=== PATIENT | female | born 1985 | race Caucasian/White ===

== ENCOUNTER 2017-03-01 12:48 | Inpatient (IN) | payer MEDICAID ==
--- NOTE | 2017-03-01 13:06 | EDPHY ---
H & P Stated Complaint: seizure folowing ingesting "constitution party drugs." Time Seen by Provider: 03/01/17 13:05 Source: Patient - Personal History LMP (Females 10-55): Unknown Current Tetanus/Diphtheria Vaccine: Unsure Current Tetanus Diphtheria and Acellular Pertussis (TDAP): Unsure - Medical/Surgical History Other PMH: unknown as pt curtrently unresponsive - Social History Smoking Status: Unknown if ever smoked Constitutional: Initial Vital Signs Temperature (C) 36.5 C 03/01/17 12:51 Heart Rate 89 03/01/17 12:51 Respiratory Rate 18 03/01/17 12:51 Blood Pressure 142/81 H 03/01/17 12:51 O2 Sat (%) 96 03/01/17 12:51 Allergies/Adverse Reactions: Unable to Assess Allergy (Unverified 03/01/17 12:55) Home Medications: Medication Instructions Recorded Unobtainable 03/01/17 Medical Decision Making - Diagnostics Imaging Results: Imaging Impressions Head CT 03/01/17 13:19 Impression: Normal brain. No intracranial hemorrhage or mass effect. Findings discussed with emergency department physician, Luis Alberto Berman MD on March 01, 2017 at 2:15 p.m. Imaging: Discussed imaging studies w/ budget manager Radiologist ED Course/Re-evaluation: CHIEF COMPLAINT: Altered mental status HISTORY OF PRESENT ILLNESS: The patient is a 31-year-old female presenting altered mental status. The patient was at a dance/rave last night and took Lane , drank alcohol, and used marijuana. Around 2am started vomiting and seemed " out of it" per her friends. At 6am the patient began to convulse with tonic clonic movement for about 1.5 minutes. She was drinking a significant amount of water throughout the night. Her friends additionally state the patient took Dramamine and Benadryl before bed. She has remained altered. She moves throughout the bed, but does not respond to questions. History is limited as the patient is altered and does not respond to questions. REVIEW OF SYSTEMS: Unable to obtain because patient is altered. PHYSICAL EXAM: HR, BP, O2 Sat, RR. Temp noted General Appearance: Alert, does not respond to questions, appears altered. Head: Atraumatic without scalp tenderness or obvious injury Eyes: Pupils are dilated, round, reactive to light and accommodation, EOMI, no trauma, no injection. Ears: Clear bilaterally, no perforation, normal landmarks Nose: Atraumatic, no rhinorrhea, clear. Throat: There is no erythema or exudates, no lesions, normal tonsils, mucus membranes moist. Neck: Supple, 2+ carotid upstroke, nontender, no lymphadenopathy. Respiratory: No retractions, no distress, no wheezes, and no accessory muscle use. Lungs are clear to auscultation bilaterally. Cardiovascular: Regular rate and rhythm, no murmurs, rubs, or gallops. Bilateral carotid, radial, dorsalis pedis, and posterior tibial pulses intact. Good capillary refill all extremities. Gastrointestinal: Abdomen is soft, non-distended, no masses, no rebound, no guarding, no peritoneal signs. Musculoskeletal: Normal active ROM of all extremities, atraumatic. Neurological: Alert, appropriate, and interactive. The patient has normal DTRs and non-focal cranial nerves, motor, sensory, and cerebellar exam. Skin: No rashes, good turgor, no nodules on palpation. Past medical history: Denies. Past surgical history: Denies Family history: Noncontributory Social history: Alcohol use. Marijuana use. Lane use. Here with friends. DIAGNOSTICS/PROCEDURES/CRITICAL CARE TIME: Head CT reported to me by the radiologist is normal. Please see imaging section for full report. DIFFERENTIAL DIAGNOSIS: The differential diagnosis for the patient's altered mental status included but was not limited to hypoglycemia, infectious process, electrolyte abnormality, head injury, neurologic process, anemia, cardiac process, and intoxicants. MEDICAL DECISION MAKING: The patient presents with altered mental status and seizure from polysubstance use last night. The patient took lane, drank alcohol , and used marijuana last night. Around 6am she had a seizure confirmed by her friends who report she had tonic clinic movement and bit her tongue. The patient took two anticholinergics before bed. Her pupils are dilated and she does not responds to questions. Plan for extensive lab work. We will look for dehydration and electrolyte issue. CT head ordered. The patient's sodium is low at 123, her chloride is low at 8.6, and potassium is elevated at 5.5. The patient's serum osmolality is low at 263. We will restrict her fluids. Her urinalysis is still pending. Her glucose is normal and kidney function appear normal. The patient has metabolic gap acidosis that is likely from seizure caused by depleted sodium. Her CT head is normal. Plan to admit the patient for further observation. Her fluids have been restricted. Urinalysis is pending. 2:15 p.m.: I spoke to the hospitalist, the patient will be admitted to Dr. Waters. - Data Points Laboratory Results: Laboratory Results 03/01/17 12:48 03/01/17 12:48 03/01/17 03/01/17 03/01/17 12:48 12:48 12:48 WBC TNP RBC TNP Hgb TNP Hct TNP MCV TNP MCH TNP MCHC TNP RDW TNP Plt Count TNP MPV TNP Neut % (Auto) TNP Lymph % (Auto) TNP [place] % (Auto) TNP Eos % (Auto) TNP Baso % (Auto) TNP Nucleat RBC Rel Count TNP Absolute Neuts (auto) TNP Absolute Lymphs (auto) TNP Absolute Monos (auto) TNP Absolute Eos (auto) TNP Absolute Basos (auto) TNP Absolute Nucleated RBC TNP Immature Gran % TNP Immature Gran # TNP Sodium 123 mEq/L L mEq/L (135-145) Potassium 5.5 mEq/L H mEq/L (3.5-5.2) Chloride 86 mEq/L L mEq/L (97-110) Carbon Dioxide 12 mEq/l L mEq/l (22-31) Anion Gap 25 mEq/L H mEq/L (8-16) BUN 4 mg/dL L mg/dL (7-23) Creatinine 0.6 mg/dL mg/dL (0.6-1.0) Estimated GFR > 60 Glucose 104 mg/dL H mg/dL (70-100) Serum Osmolality 263 mosmo/kg L mosmo/kg (280-297) Calcium 9.6 mg/dL mg/dL (8.5-10.4) Total Bilirubin 1.5 mg/dL H mg/dL (0.1-1.4) Conjugated Bilirubin 0.4 mg/dL mg/dL (0.0-0.5) Unconjugated Bilirubin 1.1 mg/dL mg/dL (0.0-1.1) AST 46 IU/L IU/L (14-46) ALT 37 IU/L IU/L (9-52) Alkaline Phosphatase 86 IU/L IU/L (38-126) Total Protein 7.5 g/dL g/dL (6.3-8.2) Albumin 4.5 g/dL g/dL (3.5-5.0) Lipase 90 IU/L IU/L (23-300) Beta HCG, Qual NEGATIVE Departure - Departure Disposition: [facility] [place] Inpatient Acute Clinical Impression: Seizure, Polydipsia, Polysubstance abuse Condition: Fair Report Scribed for: Luis Alberto Berman Report Scribed by: Geraldine Cruz Date of Report: 03/01/17 Time of Report: 14:22
[2017-03-01] MEDS ORDERED: ALTEPLASE 2 MG VIAL IVP PRN (14:24)
[2017-03-01 14:39] LABS: PLATELET COUNT 392 10^3/uL (150-400)
[2017-03-01] MEDS ORDERED: ONDANSETRON DISINTEGRATING 4 MG TAB PO PRN (14:58)
[2017-03-01] MEDS ORDERED: ONDANSETRON 4 MG/2 ML VIAL IVP PRN (14:58)
[2017-03-01] MEDS ORDERED: ACETAMINOPHEN 325 MG TAB PO PRN (14:58)
[2017-03-01] MEDS ORDERED: SODIUM Cl 3% 100 ML IV SCH (15:15)
--- NOTE | 2017-03-01 16:02 | GHP ---
[f rep st] HISTORY AND PHYSICAL DATE OF ADMISSION: 03/01/2017 HISTORY OF PRESENT ILLNESS: The patient is a pleasant 31-year-old female with past medical history o f bipolar, who went out to see a concert last night, she took some ecstasy, and drank a fair amount o f alcohol. Her friends note that she drank a great deal of water. She also smoked some marijuana, a nd took some Benadryl and Dramamine prior to sleep. She was known to move from the couch to the bed at about 5 or 6 this morning, and at about 1 o'clock, while still sleeping it off, the patient was ob served to have a generalized tonic-clonic seizure. Her friends were with her, and stated there was n o head injury or fall. She did not take anything else of which they are aware. She has no previous seizure history. Her home medications are unknown. She did not eat much last night, has not eaten this morning, and she has been groggy since. REVIEW OF SYSTEMS: A complete 10-point review of systems conducted and negative except as noted in the HPI. PAST MEDICAL HISTORY: Bipolar. ALLERGIES: Unable to be assessed, but believe to be none. HOME MEDICATIONS: A bipolar medicine, no further information. SOCIAL HISTORY: No tobacco, substances as in the HPI. FAMILY HISTORY: Reviewed and unremarkable. PHYSICAL EXAMINATION: VITAL SIGNS: Temp 36.5, blood pressure 142/81, pulse 89, breathing 18 times a minute, 96% on room air. GENERAL: No acute distress. She is actively resisting the exam, she is a bit glassy eyed and not conversant. EYES: Sclerae are anicteric. Pupils are equal, round, reactiv e to light and accommodation. NECK: Supple without lymphadenopathy. LUNGS: Clear to auscultation bilaterally. HEART: As best I can tell, but she is noncompliant with the exam. Her heart is S1, S2 . Not tachycardic. ABDOMEN: Soft, nontender, nondistended. LOWER EXTREMITIES: Without edema. NE UROLOGIC: Notable for encephalopathy. The patient is unable to commit to complete neurologic exam. LABS: Her white count 14.8, hematocrit is 37, with a low MCV, platelets are 392,000. Sodium 123, potassium 5.5, chloride 86, bicarb 12, BUN 4, creatinine 0.6, glucose 104, serum __ are 263, bilirubin is a little bit high 1.5. LFTs, and lipase, and beta HCG are negative. Repeat sodium about 90 minutes later, is the sodium 120, potassium 4.7, chloride 90, bicarb 18, BUN 4, crea tinine 0.5, glucose 102. Noncontrast head CT is normal, without evidence of trauma. I have discussed the case with Dr. Luis Alberto Berman, as well as Dr. Luis Antonio Berry of Nephrology. ASSESSMENT/PLAN: A 31-year-old female with seizure secondary to acute hyponatremia. 1. Hyponatremia. I suspect that the patient has water intoxication, as well as probably abnormal wa ter handling from the polyuria that can come with ecstasy use, as well as poor water handling. I blanquita l fluid restrict her. Given that her sodium has fallen with no intervention, and she did receive zer o IV fluids in the emergency department. I will give her a bolus of 100 cc over 2 hours of 3% saline and have a Nephrology consult. We will follow her sodium q.3 hours via a PICC line and place her in the ICU. 2. Seizure. This is secondary to hyponatremia. We will hold off on antiepileptic drugs, unless the re is a second seizure. 3. Metabolic acidosis with anion gap. This is secondary to seizures and is correcting. We will fol low her chem-7. 4. Microcytic anemia. This is likely iron deficiency. 5. Encephalopathy. This is multifactorial as described above. We will follow, it is concerning. 6. Vomiting. She did have an episode of vomiting. We will check a chest x-ray, given the likelihoo d or possibility of aspiration. DISPOSITION: ICU. Sixty minutes of critical care spent on the care of this patient. /[id number]/MODL
--- NOTE | 2017-03-01 16:39 | PDMN ---
Medical Necessity Medical necessity: C/M review: est. > 2 MN LOS fro eval and TX of acute and persistent - hyponatremia, metabolic acidosis with anion gap, microcytic anemia , encephalopathy; episode of vomiting requiring PICC line placement, planned nephrology consult, ongoing NPO, IV fluid, close monitoring in ICU, comorbid witnessed generalized tonic-clonic seizure prior to this admission, bipolar disorder, patient took ecstasy, alcohol, marijuana, Benadryl and Dramamine last night prior to this admission per H/P.
[2017-03-01] MEDS ORDERED: SODIUM Cl 3% 100 ML IV ONE (17:00)
--- NOTE | 2017-03-01 18:42 | GCON ---
[f rep st] CONSULTATION REFERRING PHYSICIAN: Josias Waters MD REASON FOR CONSULTATION: Hyponatremia. HISTORY OF PRESENT ILLNESS: The patient is a 31-year-old female, who was brought in to the emergency department today after she experienced a seizure. She was at a dance green party/rave last night, where s he reportedly used ecstasy, alcohol, marijuana, and also took some Benadryl and Dramamine. She was d rinking water throughout the night. She was more unresponsive this morning prior to having generaliz ed convulsive movements. In the emergency department, she was found to have a low blood sodium of 12 3. No IV fluids were given, per chart review, but her sodium on subsequent check was 120. Her neuro status remained altered. She did not verbalize but would open her eyes without following other comm ands. Urine testing has not been obtained yet. We are asked to assist in management. She received a PICC line and has been transferred to the ICU. At this time, she continues to not respond upon que stioning. PAST MEDICAL HISTORY: Bipolar disorder. ALLERGIES: No known allergies. Unable to assess. SOCIAL HISTORY: See HPI. She is not reportedly a smoker. FAMILY HISTORY: Unable to obtain. CURRENT MEDICATIONS: Zofran p.r.n. Home medications unknown. REVIEW OF SYSTEMS: Cannot obtain. Patient not responsive. PHYSICAL EXAMINATION: VITAL SIGNS: 118/79, pulse 90, respirations 18. 94% on room air. 36.9 Celsi us. GENERAL: Withdrawn young female, curled up in the position, who does not respon d to commands. When roused and repositioned with nursing staff, she does open her eyes but quickly c loses them and rolls back over. She is not tremulous or diaphoretic. EYES: Sclerae appear without injection. HEAD: Atraumatic. NECK: Unable to get a good neck exam. HEART: Regular rate and rhyt hm without murmurs, gallops, or rubs. LUNGS: Clear to auscultation bilaterally. ABDOMEN: Suboptim al exam but soft and nontender. LOWER EXTREMITIES: Without any pitting edema. NEUROLOGICAL: She i s lethargic and does not vocalize. No clearly gross focal deficits. SKIN: Without rashes. MUSCULO SKELETAL: No gross joint swelling or deformities. LABS: Sodium is 120, potassium 4.7, CO2 18, BUN 4, creatinine 0.5. TSH 1.26. White count 14.8, hem oglobin 13, platelets 392. Chest x-ray, which I personally reviewed, was unremarkable for infiltrates or pulmonary edema. Head CT: Negative for hemorrhage or mass effect. IMPRESSION AND PLAN: 1. Hyponatremia. This is presumed acute, most likely due to ecstasy use and excess serotonergic sti mulation in the setting of ongoing water intake overnight. I do not have urine studies to confirm he r physiology, but we will treat as syndrome of inappropriate antidiuretic hormone secretion. She luong s have acute mental status changes and had a seizure. I believe this is due to acute lowering of her sodium and probably some mild cerebral edema. Therefore, it is prudent to give a bolus of hypertoni c saline and try to raise her sodium level by 2-3 points. We will fluid restrict her and follow seri al sodiums every 2 hours. If needed, we can give additional hypertonic saline at a slow rate, such a s 15-20 cc/hr. I anticipate that this will easily correct on its own with fluid restriction. 2. Altered mental status. She ingested multiple neuroactive substances affecting multiple pathways. Fortunately, she has stable vital signs and will hopefully recover without additional interventions . 3. Acidosis. Her anion gap was 25 earlier today. Presumably lactic acidosis from her seizure. Thi s has resolved, with a current anion gap of 12. If she had another toxic solvent ingestion, I would not have expected her anion gap to suddenly clear like this. I will check a serum osmolality just to be safe. We will follow this. I will not give sodium bicarbonate at this time. 4. Hyperkalemia. Her potassium was initially 5.5. This was likely due to transient acidosis and ex tracellular shifting. This has now corrected to 4.7. I did spend from 1650 to 1722 in critical care time with this patient. ADDENDUM: Her sister and sister's came in after my exam. She lives with them. They state s he was at her normal baseline health, which is not well mentally but reportedly on bipolar medication . They are not sure what she currently takes. She had a prior suicide attempt 8 years ago but nothi ng like that since. She has not been hospitalized for drug overdoses otherwise, to their knowledge. She was on lithium in the past but not recently. I would add that her bipolar medication, depending on what she takes, may be contributing to some chronic hyponatremia. Unfortunately, we do not have a baseline. Therefore, we will target a sodium level of around 126 by tomorrow morning. I would lik e to place a Vargas to better assess her physiology. I still think it is most likely that this is all acute. /[id number]/MODL
[2017-03-02] MEDS ORDERED: DESMOPRESSIN ACETATE 4 MCG/ML INJ SC ONE (02:30)
[2017-03-02] MEDS ORDERED: D5W 1,000 ML IV SCH (02:30)
--- NOTE | 2017-03-02 11:55 | SOAPPROG ---
SOAP Progress Note Assessment/Plan: Assessment/Plan: Hyponatremia: likely an acute drop in setting of ecstasy use. Pt initially requiring 3% sodium chloride and sodium up from 123 -> 120 -> 130, so overnight given ddavp as well as started on D5W. Sodium now 127. - Will stop D5W. - Will allow pt to drink po fluids, no restriction for now. - Goal sodium is 133-135 tomorrow morning. - Will continue to monitor sodium q3h for now and adjust water and sodium as needed. Hyperkalemia: resolved, K down from 5.5 to 4.0, will continue to monitor. Subjective: No acute events overnight. Pt is now awake, states that she feels bad about what she did. She denies any pain, dyspnea or confusion today. Objective: Vital Signs Temp Pulse Resp BP Pulse Ox 36.9 C 82 14 101/64 97 03/02/17 09:53 03/02/17 09:53 03/02/17 09:53 03/02/17 09:53 03/02/17 09:53 Laboratory Results 03/01/17 14:32 03/02/17 10:50 03/01/17 03/02/17 03/03/17 05:59 05:59 05:59 Intake Total 800 Output Total 3000 Balance -2200 General: alert and oriented, no acute distress Eyes: EOMI, PERRL OP: Clear CV: RRR Resp: nonlabored respirations on RA Abd: Soft, NT/ND Ext: no edema BLE Neuro: CN II-XII grossly intact, no asterixis PsycH: cooperative, appropriate mood and affect ICD10 Worksheet Patient Problems: Problems Problem Status Onset Polydipsia Acute Polysubstance abuse Acute Seizure Acute
--- NOTE | 2017-03-02 13:02 | GCON ---
[f rep st] CONSULTATION MANAGER SOCIAL MEDIA CONSULTATION. DATE OF CONSULTATION: 03/02/2017 REASON FOR ADMISSION: Hyponatremia and ingestion of ecstasy. HISTORY OF PRESENT ILLNESS: The patient is an extremely pleasant 31-year-old white female with a pas t medical history including bipolar disorder. She was out partying and drank excessive amounts of al cohol. This occurred at a concert and then she took some ecstasy. Subsequently she began drinking e xcessive amounts of water. She apparently smoked some marijuana and took Benadryl on Dramamine prior to falling asleep. In the morning she was observed to have a generalized seizure and she was jagdeep t to the emergency room. Currently, patient is awake and alert and regretful of her indigestions. S he does not complain of any pain. There is no cough or production of sputum. There is no fever or n ight sweats. REVIEW OF SYSTEMS: A complete 10-point Review of Systems was performed and negative except which is noted in HPI. PAST MEDICAL HISTORY: Significant bipolar disease. ALLERGIES: No known allergies to medications. SOCIAL HISTORY: No history of tobacco use. She states infrequent alcohol use. Work history: She w orks in [place]. She is single, without children. She has lived in [facility] 3[place]years away from [place]. FAMILY HISTORY: Noncontributory. PHYSICAL EXAM: VITAL SIGNS: Blood pressure 112/79, pulse is 89, respirations 14, temperature 38.5, oxygen saturation 98% on room air. GENERAL: She is a well-developed, well-nourished, 31-year-old fe male, who is resting comfortably in no acute distress. HEENT: Eyes are PERRLA, EOMI. Throat shows no erythema or tonsillar hypertrophy. NECK: Supple. No cervical adenopathy. HEART: Regular rate and rhythm without murmurs, rubs, or gallops. LUNGS: Diminished breath sounds, but no wheeze. ABDO MEN: Soft, nontender. Bowel sounds are present in all 4-quadrants. EXTREMITIES: No clubbing, cyan osis, or edema. NEURO EXAM: Cranial nerves 2 through 12 are grossly intact. She is alert and orien lj x3. LABORATORIES: Sodium is 127, potassium 4.0, chloride 96. CO2 is 23, BUN 6, creatinine 0.6, glucose is 88. Urinalysis: pH 7, specific gravity described 1.014, 1+ bacteria. IMPRESSION: 1. Polysubstance abuse including ecstasy, marijuana and alcohol. 2. Hyponatremia. 3. Seizure secondary to hyponatremia. 4. Metabolic acidosis. 5. Encephalopathy, resolved. 6. Vomiting, resolved. RECOMMENDATIONS: 1. Agree with Nephrology consult. 2. Close monitoring of sodium. 3. DVT and PE prophylaxis. 4. Stress ulcer prophylaxis. Thank you very much. /[id number]/MODL
[2017-03-02] MEDS ORDERED: POLYETHYLENE GLYCOL 3350 17 GM PKT PO PRN (15:19)
[2017-03-02] MEDS ORDERED: BISACODYL 10 MG SUPP PR PRN (15:19)
[2017-03-02] MEDS ORDERED: LACTULOSE 20 GM/30 ML UDCUP PO PRN (15:19)
[2017-03-02] MEDS ORDERED: MAGNESIUM HYDROXIDE 30 ML UDCUP PO PRN (15:19)
--- NOTE | 2017-03-02 15:20 | HOSPPROG ---
Hospitalist Progress Note Assessment/Plan: Assessment: 31-year-old female presents with acute seizure and encephalopathy in the setting of acute hyponatremia Plan: 1. Acute encephalopathy. Evidenced by global brain dysfunction characterized as inability to cooperate with exam, somnolence, all of which are acute change from her baseline, most likely secondary to the acute metabolic effects of hyponatremia, toxic effects of polysubstance ingestion, as well as postictal state -currently mentating at baseline, remains lethargic 2. Acute seizure. Most likely secondary to acute hyponatremia, no indication for further epileptic medications 3. Hyponatremia. Acute, severe, most likely resulting in seizure and encephalopathy, most likely caused by primary polydipsia in the setting of ecstasy ingestion -status post hypertonic saline, then received DDAVP after the patient's sodium level corrected too quickly, received D5 W overnight -discussed with Dr. Kingston, she recommends ongoing Q 3 hr sodium level monitoring , mild fluid restriction, discontinue D5 -counseled the patient regarding her medical condition, as well as its connection to ecstasy ingestion, encourage the patient that there likely will be long-term impairment due to this issue, but the reason we are focusing so closely on sodium level correction is to prevent those 4. Metabolic acidosis. Acute, most likely secondary to lactic acid in the setting of seizure, resolved 5. Polysubstance ingestion. Discussed with patient in detail, patient is currently experiencing stages of regret and guilt -encouraged patient to interact with our case management social worker for further counseling and guidance 6. Mood disorder. Patient is currently taking Cymbalta for her underlying mood disorder, this as reportedly led to some instability in the patient's life and the patient currently has a narrow support network with her sister being her only local family -will continue the Cymbalta tomorrow, suspect that the acute hyponatremia is most likely not due to the Cymbalta and if recommended by Nephrology, she can remain off of Cymbalta for a set amount of time prior to initiating if needed . Regular comma mild fluid restriction Prophylaxis. Low risk patient, SCDs Code. Full Disposition. Anticipated discharge is 03/03, pending stabilization of condition outlined above. Subjective: Patient is voicing regret, disappointment, guilt regarding her presentation, she is afraid of long-term consequences Objective: Vital Signs Temp Pulse Resp BP Pulse Ox 38.5 C H 76 15 112/79 96 01/15/18 12:00 03/02/17 14:00 03/02/17 14:00 03/02/17 14:00 03/02/17 14:00 Laboratory Results 03/01/17 14:32 03/02/17 13:30 03/01/17 03/02/17 03/03/17 05:59 05:59 05:59 Intake Total 800 Output Total 3000 Balance -2200 - Time Spent With Patient Time Spent with Patient: greater than 35 minutes Time Spent with Patient: Greater than 35 minutes spent on this patients care, greater than 50% of time spent counseling, educating, and coordinating care regarding the above mentioned plan. - Physical Exam Constitutional: appears nourished, not in pain, No chronically ill appearing, No uncomfortable Ears, Nose, Mouth, Throat: moist mucous membranes Cardiovascular: regular rate and rhythym, no murmur, rub, or gallop Respiratory: no respiratory distress, no rales or rhonchi, clear to auscultation Gastrointestinal: normoactive bowel sounds, soft, non-tender abdomen, no palpable masses Neurologic: AAOx3, sensation intact bilaterally, other (No tremulousness), No weakness, No asterixes Psychiatric: not encephalopathic, thought process linear, anxious, depressed, No agitated ICD10 Worksheet Patient Problems: Problems Problem Status Onset Polydipsia Acute Polysubstance abuse Acute Seizure Acute
[2017-03-02 17:25] LABS: PLATELET COUNT 266 10^3/uL (150-400)
--- NOTE | 2017-03-02 17:29 | ASMTCMCOM ---
CM Note CM Note Notes: 31 year old female admitted for SZ, hyponatremia and polysubstance use. She has a hx of Bipolar. Spoke with the patient who was tearful. "I never do this kind of stuff and here I am in the hospital!" Patient reports that she and her sister live together in [facility]. They came to [place] to participate in a Rave and she took substances. Her sister is older and very concerned. No parents. Patient regretful and states that she has learned a lesson. Date Signed: 03/02/2017 05:28 PM Electronically Signed By:Azeb Gold LCSW
[2017-03-02] MEDS ORDERED: SODIUM Cl 3% 30 ML IV ONE (20:30)
[2017-03-02] MEDS: SENNOSIDES/DOCUSATE SODIUM TAB PO SCH (20:52)
[2017-03-02] MEDS ORDERED: SODIUM CHLORIDE 1,000 MG TAB PO ONE (22:00)
[2017-03-02] MEDS ORDERED: POTASSIUM CL 20 MEQ TAB PO ONE (22:00)
[2017-03-03] MEDS ORDERED: D5W 1,000 ML IV SCH ×2 (01:00→04:30)
[2017-03-03 03:40] LABS: PLATELET COUNT 280 10^3/uL (150-400)
[2017-03-03] MEDS ORDERED: DESMOPRESSIN ACETATE 4 MCG/ML INJ ONE (04:18)
[2017-03-03] MEDS ORDERED: DESMOPRESSIN ACETATE 4 MCG/ML INJ IVP ONE (04:30)
[2017-03-03] MEDS: SENNOSIDES/DOCUSATE SODIUM TAB PO SCH (08:51)
[2017-03-03] MEDS ORDERED: ARIPiprazole 5 MG TAB PO SCH (09:00)
--- NOTE | 2017-03-03 09:38 | PDINTPN ---
Microbiology Instructor Progress Note Assessment/Plan: Assessment: * Hyponatremia-markedly improved the rapidly. Received a dose of DDAVP this morning. -await more recent sodium -per Nephrology * Status post ectasy ingestion Plan: Possibly home today Subjective: Awake and alert. Comfortable. Denies any pain. No somnolence. Objective: Vital Signs Temp Pulse Resp BP Pulse Ox 36.8 C 80 11 L 114/77 100 03/02/17 19:46 03/03/17 08:00 03/03/17 08:00 03/03/17 08:00 03/03/17 08:00 Laboratory Results 03/03/17 03:05 03/02/17 03/03/17 03/04/17 05:59 05:59 05:59 Intake Total 800 686 Output Total 3000 2950 Balance -2200 -2264 Laboratory Results 03/03/17 03:05 03/03/17 09:00 03/03/17 03/03/17 03/02/17 06:25 03:05 23:59 Sodium 138 mEq/L mEq/L 138 mEq/L mEq/L 132 mEq/L L mEq/L (135 - 145) (135 - 145) (135 - 145) 03/02/17 21:05 Sodium 125 mEq/L L mEq/L (135 - 145) - Time Spent With Patient Time Spent With Patient: 35 min of time spent with patient, over 1/2 involved with coordination of care or counseling Physical Exam - Physical Exam General Appearance: alert, no apparent distress EENT: PERRL/EOMI, normal ENT inspection, pharynx normal, TMs normal Neck: non-tender, full range of motion, supple, normal inspection Respiratory: chest non-tender, lungs clear, normal breath sounds Cardiac/Chest: normal peripheral pulses, regular rate, rhythm Peripheral Pulses: 2+: carotid (R), carotid (L), femoral (R), femoral (L), dorsalis-pedis (R), dorsalis-pedis (L) Abdomen: normal bowel sounds, non-tender, soft Pelvic Exam: deferred Rectal: deferred Skin: normal color, warm/dry Extremities: normal range of motion, non-tender, normal inspection, normal capillary refill Neuro/Psych: no motor/sensory deficits, alert, normal mood/affect, oriented x 3 ICD10 Worksheet Patient Problems: Problems Problem Status Onset Polydipsia Acute Polysubstance abuse Acute Seizure Acute
--- NOTE | 2017-03-03 09:39 | SOAPPROG ---
SOAP Progress Note Assessment/Plan: Assessment/Plan: Hyponatremia: likely an acute drop in setting of ecstasy use. Pt initially requiring 3% sodium chloride and sodium responded, started on DDAVP and D5W to slow down her correction. Yesterday she slowly drifted down and got 3% again, and sodium came up to 138, got DDAVP again this morning. - Pt is on D5W and got DDAVP. - Will stop fluid restriction and allow her to drink. - Goal is to stop D5W and allow her to correct, stay in mid 130s today. - Will continue to monitor sodium q3h for now and adjust water and sodium as needed. Subjective: No acute events overnight. Sodium dropped down yesterday evening to 125 in setting of DDAVP given the night before and fluid restriction. Pt was given additional 3% and sodium increased to 138, got additional DDAVP early this morning. Pt denies any confusion. She had a slight headache yesterday but feels fine today. She had some mild nausea with eating yesterday but tolerating fluids fine. She feels thirsty. Objective: Vital Signs Temp Pulse Resp BP Pulse Ox 36.8 C 80 11 L 114/77 100 03/02/17 19:46 03/03/17 08:00 03/03/17 08:00 03/03/17 08:00 03/03/17 08:00 Laboratory Results 03/03/17 03:05 03/02/17 03/03/17 03/04/17 05:59 05:59 05:59 Intake Total 800 686 Output Total 3000 2950 Balance -2200 -2264 General: alert and oriented, no acute distress Eyes; EOMI, pERRL OP: Clear CV: RRR Resp: CTA bilat, nonlabored respirations Abd: Soft,, NT/ND Ext: no edema BLE Neuro: CN II-XII grossly intact, no asterixis Psych; cooperative, appropriate mood and affect ICD10 Worksheet Patient Problems: Problems Problem Status Onset Polydipsia Acute Polysubstance abuse Acute Seizure Acute
[2017-03-03 12:49] VITALS: TEMP 98
[2017-03-03 14:29] VITALS: BP 102/65; PULSE 76; RESP 15; O2SAT 98
--- NOTE | 2017-03-03 16:53 | PDDCSUM ---
Discharge Summary Discharge Summary: DISCHARGE SUMMARY FOLLOW-UP ITEMS: The creatinine BUN and lytes 1 week in the outpatient setting DATE OF ADMISSION: 03/01/2017 DATE OF DISCHARGE: 03/03/2017 DISCHARGE DIAGNOSES: 1. Acute encephalopathy 2. Acute seizure 3. Acute severe hyponatremia 4. Acute metabolic acidosis 5. Polysubstance ingestion 6. Chronic mood disorder CONSULTATIONS: Nephrology, Pulmonary Critical Care PROCEDURES / IMAGING: None CHIEF COMPLAINT: Acute seizure and unresponsiveness SUBJECTIVE: Patient is feeling well at time discharge, she is not experiencing any pain, she is interacting well PHYSICAL EXAM ON DISCHARGE: Systolic blood pressure is 110, heart rate 70, afebrile overnight, satting well on room air, urine output 3 L, alert awake oriented x3, not tremulous, moving all 4 extremities LABS ON DISCHARGE: Serum sodium is 131, creatinine 0.6, white blood count 5200, serum bicarb 21 HOSPITAL COURSE BY PROBLEM: The patient presented with acute encephalopathy evidenced by global brain dysfunction characterized as inability to cooperate with exam, somnolence, all of which were acute changes from baseline, most likely secondary to the acute metabolic effects of hyponatremia, metabolic acidosis, toxic effects of polysubstance ingestion as well as a postictal state. The patient had a witnessed seizure prior to presentation and this is most likely secondary to acute hyponatremia. Consequently, the focus of treatment was on the hyponatremia, the patient does not require any antiepileptic medications. Nephrology was consulted, the patient received hypertonic saline, her sodium corrected too rapidly, and she subsequently received DDAVP. Patient was also placed on D5W, and this was weaned off, with mild fluid restriction and q.3 hours sodium level monitoring. The patient also presented with metabolic acidosis as evidenced by serum bicarbonate level of 12, which resolved with IV fluids mentioned above. The patient did require re-dosing of DDAVP given her recurrent rapid correction of sodium level, and her serum sodium level has stabilized at 131 at time of discharge. The patient is experiencing no neurologic deficits, and she is committed to remaining drug free moving forward. The cause of her severe hyponatremia was ingestion of ecstasy with resultant polydipsia, on the evening prior to presentation. We counseled patient regarding the cause of her hyponatremia, supported her with social work counseling for her underlying mood disorder, and recommended that she have outpatient lab monitoring to ensure that her dosage of Abilify is not resulting in and out of chronic hyponatremia. We recommended continuing the Abilify, reaching her labs next week, and following up with her PCP. At the time discharge, she does not require fluid restrictions. DISCHARGE MEDICATIONS: Please see official discharge medication reconciliation sheet in chart , Abilify , no other medications. DISCHARGE INSTRUCTIONS: Please follow up with primary care provider, please avoid ingestion of ecstasy.
--- NOTE | 2017-03-03 17:26 | ASDISCHSUM ---
Discharge Information Plan Status:Home with No Needs Medically Cleared to Leave:03/02/2017 Discharge Date:03/03/2017 04:39 PM CM D/C Disposition:Home, Routine, Self-Care ADT D/C Disposition:Home, Routine, Self-Care Projected Discharge Date:03/03/2017 12:00 AM Transportation at D/C:Family Discharge Delay Reason: Follow-Up Date:03/03/2017 12:00 AM Discharge Slot: Final Diagnosis:SZ, polysubstance use, hyponatremia Placement Information Patient Contact Information Contact Name:YANCY Relationship:Sister Address: Work Phone: City: [facility] Phone: State/Nearbox Code: Email: Financial Information Financial Class: Primary Plan Desc:[employer] [facility] Primary Plan Number:[id number] Secondary Plan Desc: Secondary Plan Number: Assessment Information [facility] CM Progress Note CM Note CM Note Notes: 31 year old female admitted for SZ, hyponatremia and polysubstance use. She has a hx of Bipolar. Spoke with the patient who was tearful. "I never do this kind of stuff and here I am in the hospital!" Patient reports that she and her sister live together in [facility]. They came to [place] to participate in a Rave and she took substances. Her sister is older and very concerned. No parents. Patient regretful and states that she has learned a lesson. Date Signed: 03/02/2017 05:28 PM Electronically Signed By:Azeb Gold LCSW Case Management Discharge Plan Note Case Management Discharge Discharge Order Complete? Answers: Yes Patient to Obtain Answers: Independently Medications Transportation Arranged Answers: Family/Friends Transport will Pick (Date 03/03/2017 12:00 AM & Time) Family Notified Answers: Yes Notes: Sister to transport Discharge Comments Notes: Patient has been discharge home. No other needs at this time. Date Signed: 03/03/2017 04:20 PM Electronically Signed By:Azeb Gold LCSW Intervention Information
== END 2017-03-03 16:39 | disposition home or self-care (01) | DRG 640 ==
LOC: F2N 16:47
PROVIDERS: ADMIT Internal Medicine; ATTEND Internal Medicine
DX: E87.1 Hypo-osmolality and hyponatremia (principal); G93.41 Metabolic encephalopathy; E87.5 Hyperkalemia; E87.2 Acidosis; F16.90 Hallucinogen use, unspecified, uncomplicated; R56.9 Unspecified convulsions; F31.9 Bipolar disorder, unspecified
CPT/HCPCS: C1751; J2597